=== PATIENT | male | born 1970 | race African-American/Black ===

== ENCOUNTER 2018-05-15 13:49 | Inpatient (IN) | payer MEDICAID, OTHER ==
[2018-05-15] MEDS: FENTAnyl 50 MCG/ML VIAL IV ×2 (14:14→17:18)
[2018-05-15 15:01] LABS: ADD MAN DIFF? NO
[2018-05-15 15:05] LABS: WHITE BLOOD COUNT 12.5 10^3/ul (4.8-10.8)
[2018-05-15 15:06] LABS: BASOPHIL # 0.1 10^3/ul (0.0-0.1); BASOPHILS % 0.5 % (0.0-2.0); EOSINOPHILS # 0.1 10^3/ul (0.0-0.5); EOSINOPHILS % 0.6 % (0.0-7.0); HEMATOCRIT 33.7 % (42.0-52.0); HEMOGLOBIN 11.3 g/dl (14.0-18.0); LYMPHOCYTES # 1.7 10^3/ul (0.8-2.9); LYMPHOCYTES % 13.3 % (15.0-51.0); MEAN CORPUSCULAR HGB CONC 33.5 g/dl (32.0-37.0); MEAN CORPUSCULAR VOLUME 83.4 fl (82.0-101.0); MEAN PLATELET VOLUME 10.1 fl (7.4-10.4); MONOCYTES % 8.2 % (0.0-11.0); NEUTROPHIL # 9.7 10^3/ul (1.6-7.5); NEUTROPHILS % 77.1 % (39.0-77.0); PLATELET COUNT 326 10^3/UL (140-415); RED BLOOD COUNT 4.04 10^6/ul (4.70-6.10); RED CELL DISTRIBUTION WIDTH 15.8 % (11.5-14.5)
[2018-05-15 15:25] LABS: INR 0.96; PROTIME 12.9 Sec (11.9-14.9)
[2018-05-15 15:29] LABS: ANION GAP 13 (8-16); BLOOD UREA NITROGEN 16 mg/dl (7-20); CALCIUM 9.5 mg/dl (8.4-10.2); CARBON DIOXIDE 24 mmol/L (21-31); CHLORIDE 109 mmol/L (97-110); CREATININE 1.14 mg/dl (0.61-1.24); GLUCOSE 234 mg/dl (70-220); POTASSIUM 4.2 mmol/L (3.5-5.1); SODIUM 142 mmol/L (135-144)
[2018-05-15] MEDS ORDERED: ACETAMINOPHEN 325 MG TAB PO (15:30)
[2018-05-15] MEDS ORDERED: ONDANSETRON 4 MG INJ IV ×2 (15:30→17:00)
[2018-05-15] MEDS ORDERED: NACL 0.9% 3 ML SYG IV (17:00)
[2018-05-15] MEDS: ACCU-CHEK XX ×2 (17:30→21:58)
[2018-05-15] MEDS ORDERED: GLUCOSE GEL 15 GRAM TUBE PO ×2 (17:30)
[2018-05-15] MEDS ORDERED: DEXTROSE 50% 50 ML SYRINGE IV ×2 (17:30)
[2018-05-15] MEDS ORDERED: GLUCAGON 1 MG INJ IM (17:30)
[2018-05-15] MEDS ORDERED: GLUCOSE GEL 15 GRAM TUBE BUCCAL (17:30)
[2018-05-15] MEDS: INSULIN ASPART [NOVOLOG] 3 ML PEN SC ×2 (17:30→21:57)
[2018-05-15] MEDS ORDERED: metFORMIN 500 MG TAB PO (18:00)
[2018-05-15] MEDS: DEXTROSE 5%-0.45% NACL 1,000 ML IV (18:35)
[2018-05-15] MEDS: HYDROmorphONE 0.5 MG/0.5 ML SYG IV ×2 (19:41→22:02)
[2018-05-15] MEDS: ATORVASTATIN 10 MG TAB PO (21:51)
[2018-05-15] MEDS: hydrOXYzine PAMOATE 25 MG CAP PO (21:51)
[2018-05-15] MEDS: GABAPENTIN 300 MG CAP PO (21:51)
[2018-05-15] MEDS: MIRTAZAPINE 15 MG TAB PO (21:51)
[2018-05-15] MEDS: ZIPRASIDONE 20 MG CAP PO (21:51)
[2018-05-16 05:14] LABS: WHITE BLOOD COUNT 8.5 10^3/ul (4.8-10.8)
[2018-05-16 05:14] LABS: ADD MAN DIFF? NO; BASOPHILS % 0.5 % (0.0-2.0); EOSINOPHILS # 0.1 10^3/ul (0.0-0.5); EOSINOPHILS % 0.7 % (0.0-7.0); HEMATOCRIT 32.4 % (42.0-52.0); HEMOGLOBIN 10.7 g/dl (14.0-18.0); LYMPHOCYTES # 1.8 10^3/ul (0.8-2.9); LYMPHOCYTES % 21.4 % (15.0-51.0); MEAN CORPUSCULAR HEMOGLOBIN 27.6 pg (29.0-33.0); MEAN CORPUSCULAR VOLUME 83.5 fl (82.0-101.0); MEAN PLATELET VOLUME 10.3 fl (7.4-10.4); MONOCYTE # 1.1 10^3/ul (0.3-0.9); MONOCYTES % 12.4 % (0.0-11.0); NEUTROPHIL # 5.5 10^3/ul (1.6-7.5); NEUTROPHILS % 64.8 % (39.0-77.0); PLATELET COUNT 261 10^3/UL (140-415); RED BLOOD COUNT 3.88 10^6/ul (4.70-6.10); RED CELL DISTRIBUTION WIDTH 16.3 % (11.5-14.5)
[2018-05-16 05:25] LABS: HEMOGLOBIN A1C 7.5 % (0-5.9)
[2018-05-16 05:41] LABS: ALANINE AMINOTRANSFERASE 29 IU/L (13-69); ALBUMIN 3.7 g/dl (3.3-4.9); ALBUMIN/GLOBULIN RATIO 1.15; ALKALINE PHOSPHATASE 57 IU/L (42-121); ANION GAP 16 (8-16); ASPARTATE AMINO TRANSFERASE 39 IU/L (15-46); BILIRUBIN,INDIRECT 0.6 mg/dl (0-1.1); BILIRUBIN,TOTAL 0.6 mg/dl (0.2-1.3); BLOOD UREA NITROGEN 12 mg/dl (7-20); CALCIUM 8.9 mg/dl (8.4-10.2); CARBON DIOXIDE 25 mmol/L (21-31); CHLORIDE 105 mmol/L (97-110); CHOLESTEROL 141 mg/dl (100-200); CREATININE 1.18 mg/dl (0.61-1.24); GLUCOSE 186 mg/dl (70-220); HDL CHOLESTEROL 35 mg/dl (27-67); LDL CHOLESTEROL,CALCULATED 48 mg/dl; MAGNESIUM 1.6 mg/dl (1.7-2.5); PHOSPHORUS 5.3 mg/dl (2.5-4.9); POTASSIUM 4.2 mmol/L (3.5-5.1); SODIUM 142 mmol/L (135-144); TOTAL PROTEIN 6.9 g/dl (6.1-8.1); TRIGLYCERIDES 292 mg/dl (0-149)
[2018-05-16] MEDS ORDERED: DEXAMETHASONE 4 MG/ML 1 ML INJ (07:00)
[2018-05-16] MEDS ORDERED: ONDANSETRON 4 MG INJ (07:00)
[2018-05-16] MEDS ORDERED: ROCURONIUM 50 MG INJ (07:00)
[2018-05-16] MEDS: DEXTROSE 5%-0.45% NACL 1,000 ML IV (07:11)
[2018-05-16] MEDS: ACCU-CHEK XX ×4 (07:20→20:22)
[2018-05-16] MEDS: ALLOPURINOL 300 MG TAB PO (09:32)
[2018-05-16] MEDS: hydrOXYzine PAMOATE 25 MG CAP PO ×2 (09:32→20:19)
[2018-05-16] MEDS: LISINOPRIL 5 MG TAB PO (09:32)
[2018-05-16] MEDS: GABAPENTIN 300 MG CAP PO ×2 (09:32→20:19)
[2018-05-16] MEDS: ZIPRASIDONE 20 MG CAP PO ×2 (09:32→20:27)
[2018-05-16] MEDS: INSULIN ASPART [NOVOLOG] 3 ML PEN SC ×4 (09:40→20:22)
[2018-05-16] MEDS: HYDROmorphONE 0.5 MG/0.5 ML SYG IV ×2 (09:45→15:02)
[2018-05-16] MEDS: MAGNESIUM SULFATE 2 GM/50 ML 50 ML IVPB (14:07)
[2018-05-16] MEDS ORDERED: FENTAnyl 50 MCG/ML VIAL ×2 (14:56→15:46)
[2018-05-16] MEDS ORDERED: MIDAZOLAM 1 MG/ML 2 ML INJ ×3 (14:57→15:45)
[2018-05-16] MEDS ORDERED: METOCLOPRAMIDE 10 MG INJ (14:58)
[2018-05-16] MEDS ORDERED: BUPIVACAINE 0.75%/DEXT (SPINAL) 2 ML INJ (15:44)
[2018-05-16] MEDS ORDERED: morphine SULFATE/PF (10 MG/10 ML) INJ (15:44)
[2018-05-16] MEDS ORDERED: METOCLOPRAMIDE 10 MG INJ IV (17:30)
[2018-05-16] MEDS ORDERED: NALOXONE (0.4 MG/ML) INJ IV (17:30)
[2018-05-16] MEDS ORDERED: hydrALAzine 20 MG INJ IV (17:30)
[2018-05-16] MEDS ORDERED: MIDAZOLAM 1 MG/ML 2 ML INJ IV (17:30)
[2018-05-16] MEDS ORDERED: FENTAnyl 50 MCG/ML VIAL IV ×3 (17:30)
[2018-05-16] MEDS ORDERED: LABETALOL HCL 20MG INJ IV (17:30)
[2018-05-16] MEDS ORDERED: ALBUTEROL 0.083% (NEB) 2.5 MG/3 ML AMP HHN (17:30)
[2018-05-16] MEDS ORDERED: HYDROmorphONE 1 MG/5 ML IV SYRINGE IV ×3 (17:30)
[2018-05-16] MEDS ORDERED: HYDROmorphONE 0.5 MG/0.5 ML SYG IV ×2 (17:30)
[2018-05-16] MEDS ORDERED: ZOLPIDEM 5 MG TAB PO (17:30)
[2018-05-16] MEDS ORDERED: ONDANSETRON 4 MG INJ IV ×2 (17:30)
[2018-05-16] MEDS ORDERED: EPHEDrine SULFATE 50 MG/5 ML SYG IV (17:30)
[2018-05-16] MEDS ORDERED: KETOROLAC 30 MG INJ IV ×2 (17:30)
[2018-05-16] MEDS ORDERED: DIPHENHYDRAMINE 50 MG INJ IV ×2 (17:30)
[2018-05-16] MEDS ORDERED: NEOSTIGMINE 3 MG/3 ML SYRINGE (18:27)
[2018-05-16] MEDS ORDERED: CEFAZOLIN 1 GM INJ (18:28)
[2018-05-16] MEDS ORDERED: PHENYLephrine (100 MCG/ML) 5ML SYG (18:28)
[2018-05-16] MEDS ORDERED: GLYCOPYRROLATE 0.4 MG INJ (18:28)
[2018-05-16] MEDS ORDERED: NACL 0.9% 3 ML SYG IV (18:30)
[2018-05-16] MEDS ORDERED: CEFAZOLIN 1 GM/50 ML (PMX) 50 ML IVPB (18:30)
[2018-05-16] MEDS ORDERED: morphine 2 MG INJ IV (18:30)
[2018-05-16 19:03] LABS: ADD MAN DIFF? NO
[2018-05-16 19:04] LABS: BASOPHILS % 0.3 % (0.0-2.0); EOSINOPHILS # 0.1 10^3/ul (0.0-0.5); HEMATOCRIT 32.8 % (42.0-52.0); HEMOGLOBIN 10.4 g/dl (14.0-18.0); LYMPHOCYTES # 3.6 10^3/ul (0.8-2.9); LYMPHOCYTES % 28.9 % (15.0-51.0); MEAN CORPUSCULAR HEMOGLOBIN 27.4 pg (29.0-33.0); MEAN CORPUSCULAR HGB CONC 31.7 g/dl (32.0-37.0); MEAN CORPUSCULAR VOLUME 86.3 fl (82.0-101.0); MEAN PLATELET VOLUME 9.8 fl (7.4-10.4); MONOCYTE # 1.3 10^3/ul (0.3-0.9); MONOCYTES % 10.2 % (0.0-11.0); NEUTROPHIL # 7.4 10^3/ul (1.6-7.5); NEUTROPHILS % 59.3 % (39.0-77.0); PLATELET COUNT 213 10^3/UL (140-415); RED CELL DISTRIBUTION WIDTH 16.1 % (11.5-14.5)
[2018-05-16 19:04] LABS: WHITE BLOOD COUNT 12.5 10^3/ul (4.8-10.8)
[2018-05-16] MEDS: MEPERIDINE 25 MG INJ IV (19:22)
[2018-05-16] MEDS: SOD CHLORIDE 0.9% 1,000 ML IV (20:15)
[2018-05-16] MEDS: ATORVASTATIN 10 MG TAB PO (20:19)
[2018-05-16] MEDS: MIRTAZAPINE 15 MG TAB PO (20:19)
[2018-05-17] MEDS: CEFAZOLIN 1 GM/50 ML (PMX) 50 ML IVPB ×3 (00:49→15:58)
[2018-05-17] MEDS: INSULIN ASPART [NOVOLOG] 3 ML PEN SC ×3 (00:56→21:15)
[2018-05-17] MEDS: SOD CHLORIDE 0.9% 1,000 ML IV ×2 (06:57→08:22)
[2018-05-17] MEDS: ACCU-CHEK XX ×8 (07:20→21:17)
[2018-05-17] MEDS: GABAPENTIN 300 MG CAP PO ×2 (08:18→21:16)
[2018-05-17] MEDS: ALLOPURINOL 300 MG TAB PO (08:18)
[2018-05-17] MEDS: ZIPRASIDONE 20 MG CAP PO ×2 (08:18→21:15)
[2018-05-17] MEDS: hydrOXYzine PAMOATE 25 MG CAP PO ×2 (08:19→21:16)
[2018-05-17] MEDS: LISINOPRIL 5 MG TAB PO (08:19)
[2018-05-17] MEDS: ENOXAPARIN 40 MG/0.4 ML SYG SC (08:21)
[2018-05-17] MEDS: HYDROmorphONE 0.5 MG/0.5 ML SYG IV (09:11)
[2018-05-17] MEDS: LACTATED RINGER'S 1,000 ML IV (11:31)
[2018-05-17] MEDS: LABETALOL 200 MG TAB PO ×2 (13:04→21:17)
[2018-05-17] MEDS: HYDROCODONE/APAP (5/325) TAB PO ×4 (13:07→22:20)
[2018-05-17 14:46] LABS: ADD MAN DIFF? NO
[2018-05-17 14:47] LABS: BASOPHILS % 0.5 % (0.0-2.0); EOSINOPHILS # 0.2 10^3/ul (0.0-0.5); EOSINOPHILS % 1.8 % (0.0-7.0); HEMATOCRIT 29.5 % (42.0-52.0); HEMOGLOBIN 9.5 g/dl (14.0-18.0); LYMPHOCYTES # 1.5 10^3/ul (0.8-2.9); LYMPHOCYTES % 17.7 % (15.0-51.0); MEAN CORPUSCULAR HEMOGLOBIN 27.7 pg (29.0-33.0); MEAN CORPUSCULAR HGB CONC 32.2 g/dl (32.0-37.0); MEAN PLATELET VOLUME 10.1 fl (7.4-10.4); MONOCYTE # 0.9 10^3/ul (0.3-0.9); MONOCYTES % 11.2 % (0.0-11.0); NEUTROPHIL # 5.7 10^3/ul (1.6-7.5); NEUTROPHILS % 68.6 % (39.0-77.0); PLATELET COUNT 205 10^3/UL (140-415); RED BLOOD COUNT 3.43 10^6/ul (4.70-6.10); RED CELL DISTRIBUTION WIDTH 15.9 % (11.5-14.5)
[2018-05-17 14:47] LABS: WHITE BLOOD COUNT 8.3 10^3/ul (4.8-10.8)
[2018-05-17 15:05] LABS: ANION GAP 12 (8-16); BLOOD UREA NITROGEN 14 mg/dl (7-20); CALCIUM 8.4 mg/dl (8.4-10.2); CARBON DIOXIDE 27 mmol/L (21-31); CHLORIDE 104 mmol/L (97-110); CREATININE 1.42 mg/dl (0.61-1.24); GLUCOSE 167 mg/dl (70-220); POTASSIUM 4.4 mmol/L (3.5-5.1); SODIUM 139 mmol/L (135-144)
[2018-05-17] MEDS: ENOXAPARIN 30 MG/0.3 ML SYG SC (21:14)
[2018-05-17] MEDS: MIRTAZAPINE 15 MG TAB PO (21:16)
[2018-05-17] MEDS: ATORVASTATIN 10 MG TAB PO (21:16)
[2018-05-18] MEDS: HYDROCODONE/APAP (5/325) TAB PO ×4 (02:15→18:26)
[2018-05-18] MEDS: INSULIN ASPART [NOVOLOG] 3 ML PEN SC ×6 (02:57→20:55)
[2018-05-18 05:17] LABS: ADD MAN DIFF? NO
[2018-05-18 05:19] LABS: WHITE BLOOD COUNT 7.8 10^3/ul (4.8-10.8)
[2018-05-18 05:19] LABS: BASOPHILS % 0.5 % (0.0-2.0); EOSINOPHILS # 0.1 10^3/ul (0.0-0.5); EOSINOPHILS % 0.8 % (0.0-7.0); HEMATOCRIT 27.6 % (42.0-52.0); HEMOGLOBIN 8.9 g/dl (14.0-18.0); LYMPHOCYTES # 1.1 10^3/ul (0.8-2.9); LYMPHOCYTES % 13.6 % (15.0-51.0); MEAN CORPUSCULAR HEMOGLOBIN 27.6 pg (29.0-33.0); MEAN CORPUSCULAR HGB CONC 32.2 g/dl (32.0-37.0); MEAN CORPUSCULAR VOLUME 85.7 fl (82.0-101.0); MEAN PLATELET VOLUME 10.3 fl (7.4-10.4); MONOCYTE # 0.9 10^3/ul (0.3-0.9); MONOCYTES % 11.2 % (0.0-11.0); NEUTROPHIL # 5.7 10^3/ul (1.6-7.5); NEUTROPHILS % 73.5 % (39.0-77.0); PLATELET COUNT 198 10^3/UL (140-415); RED BLOOD COUNT 3.22 10^6/ul (4.70-6.10); RED CELL DISTRIBUTION WIDTH 15.5 % (11.5-14.5)
[2018-05-18 05:49] LABS: ANION GAP 12 (8-16); BLOOD UREA NITROGEN 15 mg/dl (7-20); CALCIUM 8.8 mg/dl (8.4-10.2); CARBON DIOXIDE 28 mmol/L (21-31); CHLORIDE 106 mmol/L (97-110); CREATININE 1.29 mg/dl (0.61-1.24); GLUCOSE 222 mg/dl (70-220); PHOSPHORUS 4.1 mg/dl (2.5-4.9); POTASSIUM 4.7 mmol/L (3.5-5.1); SODIUM 141 mmol/L (135-144)
[2018-05-18] MEDS: ACCU-CHEK XX ×8 (07:20→21:00)
[2018-05-18] MEDS: ALLOPURINOL 300 MG TAB PO (08:40)
[2018-05-18] MEDS: ZIPRASIDONE 20 MG CAP PO ×2 (08:40→20:45)
[2018-05-18] MEDS: hydrOXYzine PAMOATE 25 MG CAP PO ×2 (08:40→20:45)
[2018-05-18] MEDS: LABETALOL 200 MG TAB PO ×2 (08:40→20:48)
[2018-05-18] MEDS: GABAPENTIN 300 MG CAP PO ×2 (08:40→20:48)
[2018-05-18] MEDS: ENOXAPARIN 30 MG/0.3 ML SYG SC ×2 (08:43→20:52)
[2018-05-18 13:43] LABS: ADD UMIC YES; UR ASCORBIC ACID NEGATIVE (NEGATIVE); UR BILIRUBIN (Dip) NEGATIVE (NEGATIVE); UR BLOOD (Dip) 1+ mg/dL (NEGATIVE); UR CLARITY CLEAR (CLEAR); UR COLOR STRAW (YELLOW); UR GLUCOSE (Dip) 3+ mg/dL (NEGATIVE); UR KETONES (Dip) NEGATIVE (NEGATIVE); UR LEUKOCYTE ESTERASE (Dip) NEGATIVE Leu/ul (NEGATIVE); UR NITRITE (Dip) NEGATIVE (NEGATIVE); UR RBC 0 /HPF (0-5); UR TOTAL PROTEIN (Dip) NEGATIVE (NEGATIVE); UR UROBILINOGEN (Dip) NEGATIVE (NEGATIVE); UR WBC 0 /HPF (0-5)
[2018-05-18 13:53] LABS: CREATININE,URINE RANDOM 68.31 mg/dl (20-370)
[2018-05-18 14:14] LABS: AMPHETAMINE/METHAMPHETAMINE NEGATIVE (NEGATIVE); BARBITURATES NEGATIVE (NEGATIVE); BENZODIAZEPINES NEGATIVE (NEGATIVE); CANNABINOIDS NEGATIVE (NEGATIVE); COCAINE NEGATIVE (NEGATIVE); OPIATES POSITIVE (NEGATIVE)
[2018-05-18] MEDS: ATORVASTATIN 10 MG TAB PO (20:44)
[2018-05-18] MEDS: MIRTAZAPINE 15 MG TAB PO (20:44)
[2018-05-18] MEDS: INSULIN GLARGINE [LANTus] (100 UNITS/ML) SYG SC (20:53)
[2018-05-19] MEDS: LORAZEPAM 1 MG TAB PO ×3 (06:40→17:10)
[2018-05-19] MEDS: HYDROCODONE/APAP (5/325) TAB PO ×3 (06:40→17:10)
[2018-05-19] MEDS: ACCU-CHEK XX ×8 (07:20→21:33)
[2018-05-19] MEDS: INSULIN ASPART [NOVOLOG] 3 ML PEN SC ×5 (08:46→21:00)
[2018-05-19] MEDS: ALLOPURINOL 300 MG TAB PO (08:46)
[2018-05-19] MEDS: ZIPRASIDONE 20 MG CAP PO ×2 (08:46→21:23)
[2018-05-19] MEDS: GABAPENTIN 300 MG CAP PO ×2 (08:46→21:23)
[2018-05-19] MEDS: LABETALOL 200 MG TAB PO ×2 (08:48→21:24)
[2018-05-19] MEDS: ENOXAPARIN 30 MG/0.3 ML SYG SC ×2 (08:49→21:33)
[2018-05-19] MEDS: hydrOXYzine PAMOATE 25 MG CAP PO ×2 (08:49→21:23)
[2018-05-19] MEDS: MIRTAZAPINE 15 MG TAB PO (21:23)
[2018-05-19] MEDS: ATORVASTATIN 10 MG TAB PO (21:23)
[2018-05-19] MEDS: INSULIN GLARGINE [LANTus] (100 UNITS/ML) SYG SC (21:33)
[2018-05-20 05:08] LABS: ADD MAN DIFF? NO
[2018-05-20 05:20] LABS: WHITE BLOOD COUNT 6.8 10^3/ul (4.8-10.8)
[2018-05-20 05:20] LABS: BASOPHILS % 0.6 % (0.0-2.0); EOSINOPHILS # 0.2 10^3/ul (0.0-0.5); EOSINOPHILS % 2.8 % (0.0-7.0); HEMATOCRIT 26.2 % (42.0-52.0); HEMOGLOBIN 8.5 g/dl (14.0-18.0); LYMPHOCYTES # 2.1 10^3/ul (0.8-2.9); LYMPHOCYTES % 30.5 % (15.0-51.0); MEAN CORPUSCULAR HEMOGLOBIN 27.6 pg (29.0-33.0); MEAN CORPUSCULAR HGB CONC 32.4 g/dl (32.0-37.0); MEAN CORPUSCULAR VOLUME 85.1 fl (82.0-101.0); MEAN PLATELET VOLUME 10.4 fl (7.4-10.4); MONOCYTE # 0.7 10^3/ul (0.3-0.9); MONOCYTES % 9.6 % (0.0-11.0); NEUTROPHIL # 3.8 10^3/ul (1.6-7.5); NEUTROPHILS % 56.2 % (39.0-77.0); PLATELET COUNT 282 10^3/UL (140-415); RED BLOOD COUNT 3.08 10^6/ul (4.70-6.10); RED CELL DISTRIBUTION WIDTH 15.7 % (11.5-14.5)
[2018-05-20 06:09] LABS: ANION GAP 12 (8-16); BLOOD UREA NITROGEN 18 mg/dl (7-20); CALCIUM 9.2 mg/dl (8.4-10.2); CARBON DIOXIDE 29 mmol/L (21-31); CHLORIDE 102 mmol/L (97-110); CREATININE 1.34 mg/dl (0.61-1.24); GLUCOSE 231 mg/dl (70-220); MAGNESIUM 1.9 mg/dl (1.7-2.5); PHOSPHORUS 4.5 mg/dl (2.5-4.9); POTASSIUM 4.4 mmol/L (3.5-5.1); SODIUM 139 mmol/L (135-144)
[2018-05-20] MEDS: HYDROCODONE/APAP (5/325) TAB PO ×3 (06:35→14:56)
[2018-05-20] MEDS: ACCU-CHEK XX ×8 (08:40→21:00)
[2018-05-20] MEDS: GABAPENTIN 300 MG CAP PO ×2 (08:53→21:19)
[2018-05-20] MEDS: LABETALOL 200 MG TAB PO ×2 (08:53→21:21)
[2018-05-20] MEDS: ZIPRASIDONE 20 MG CAP PO ×2 (08:53→21:19)
[2018-05-20] MEDS: ALLOPURINOL 300 MG TAB PO (08:54)
[2018-05-20] MEDS: ENOXAPARIN 30 MG/0.3 ML SYG SC ×2 (08:56→21:18)
[2018-05-20] MEDS: INSULIN ASPART [NOVOLOG] 3 ML PEN SC ×7 (09:00→21:17)
[2018-05-20] MEDS: LORAZEPAM 1 MG TAB PO (09:04)
[2018-05-20] MEDS: hydrOXYzine PAMOATE 25 MG CAP PO ×2 (10:18→21:19)
[2018-05-20] MEDS: INSULIN GLARGINE [LANTus] (100 UNITS/ML) SYG SC (21:18)
[2018-05-20] MEDS: ATORVASTATIN 10 MG TAB PO (21:19)
[2018-05-20] MEDS: MIRTAZAPINE 15 MG TAB PO (21:21)
[2018-05-21] MEDS: SOD CHLORIDE 0.9% 500 ML IV (02:48)
[2018-05-21] MEDS: HYDROCODONE/APAP (5/325) TAB PO ×5 (02:54→20:52)
[2018-05-21] MEDS: ACCU-CHEK XX ×8 (07:20→21:00)
[2018-05-21] MEDS: INSULIN ASPART [NOVOLOG] 3 ML PEN SC ×7 (08:52→20:55)
[2018-05-21] MEDS: hydrOXYzine PAMOATE 25 MG CAP PO ×2 (09:00→20:52)
[2018-05-21] MEDS: ZIPRASIDONE 20 MG CAP PO ×2 (09:00→20:52)
[2018-05-21] MEDS: LABETALOL 200 MG TAB PO ×2 (09:01→20:53)
[2018-05-21] MEDS: ALLOPURINOL 300 MG TAB PO (09:11)
[2018-05-21] MEDS: GABAPENTIN 300 MG CAP PO ×2 (09:11→20:53)
[2018-05-21] MEDS: ENOXAPARIN 30 MG/0.3 ML SYG SC ×2 (11:24→20:57)
[2018-05-21] MEDS: ATORVASTATIN 10 MG TAB PO (20:53)
[2018-05-21] MEDS: MIRTAZAPINE 15 MG TAB PO (20:53)
[2018-05-21] MEDS: INSULIN GLARGINE [LANTus] (100 UNITS/ML) SYG SC (20:56)
[2018-05-22] MEDS: HYDROCODONE/APAP (5/325) TAB PO ×3 (05:32→15:21)
[2018-05-22] MEDS: ACCU-CHEK XX ×8 (08:40→20:34)
[2018-05-22] MEDS: ENOXAPARIN 30 MG/0.3 ML SYG SC ×2 (08:44→20:31)
[2018-05-22] MEDS: INSULIN ASPART [NOVOLOG] 3 ML PEN SC ×7 (08:45→20:32)
[2018-05-22] MEDS: hydrOXYzine PAMOATE 25 MG CAP PO ×2 (08:50→20:30)
[2018-05-22] MEDS: ALLOPURINOL 300 MG TAB PO (08:51)
[2018-05-22] MEDS: GABAPENTIN 300 MG CAP PO ×2 (08:51→20:34)
[2018-05-22] MEDS: ZIPRASIDONE 20 MG CAP PO ×2 (08:51→20:30)
[2018-05-22] MEDS: LABETALOL 200 MG TAB PO ×2 (08:52→20:33)
[2018-05-22] MEDS: MIRTAZAPINE 15 MG TAB PO (20:29)
[2018-05-22] MEDS: ATORVASTATIN 10 MG TAB PO (20:30)
[2018-05-22] MEDS: INSULIN GLARGINE [LANTus] (100 UNITS/ML) SYG SC (20:33)
[2018-05-23] MEDS: HYDROCODONE/APAP (5/325) TAB PO ×2 (02:29→08:53)
[2018-05-23] MEDS: ACCU-CHEK XX ×4 (08:18→11:10)
[2018-05-23] MEDS: INSULIN ASPART [NOVOLOG] 3 ML PEN SC ×4 (08:50→12:28)
[2018-05-23] MEDS: ENOXAPARIN 30 MG/0.3 ML SYG SC (08:51)
[2018-05-23] MEDS: ALLOPURINOL 300 MG TAB PO (08:53)
[2018-05-23] MEDS: ZIPRASIDONE 20 MG CAP PO (08:53)
[2018-05-23] MEDS: hydrOXYzine PAMOATE 25 MG CAP PO (08:53)
[2018-05-23] MEDS: GABAPENTIN 300 MG CAP PO (08:53)
[2018-05-23] MEDS: LABETALOL 200 MG TAB PO (08:54)
[2018-05-23] MEDS: HYDROmorphONE 2 MG TAB PO (11:01)
== END 2018-05-23 14:45 | disposition home health service (06) | DRG 481 ==
LOC: E/R 13:49 → MS1 15:21
PROC: 0QS606Z Reposition Right Upper Femur with Intramedullary Internal Fixation Device, Open Approach (ICD-10-PCS; principal; 2018-05-16 15:00)
DX: S72.21XA Displaced subtrochanteric fracture of right femur, initial encounter for closed fracture (principal); N17.9 Acute kidney failure, unspecified; Y35.811A Legal intervention involving manhandling, law enforcement official injured, initial encounter; Y93.02 Activity, running; Y92.411 Interstate highway as the place of occurrence of the external cause; Y99.9 Unspecified external cause status; Z59.0 Homelessness; D64.9 Anemia, unspecified; I10 Essential (primary) hypertension; M10.9 Gout, unspecified; F31.9 Bipolar disorder, unspecified; E11.9 Type 2 diabetes mellitus without complications; G62.9 Polyneuropathy, unspecified
CPT/HCPCS: 71045; 73500; 73510; 73530; 80048; 80053; 80061; 80307; 81001; 81003; 82540; 82962; 83036; 83735; 84100; 84155; 85025; 85610; 86850; 86900; 86901; 93005; 96374; 97110; 97116; 97161; 97530; 99285-25